=== PATIENT | female | born 1990 | race Caucasian/White ===

== ENCOUNTER 2017-05-01 08:21 | Emergency (ER) | payer OTHER ==
[2017-05-01 08:35] VITALS: BP 120/62
[2017-05-01] MEDS ORDERED: ALBUTEROL SULFATE/IPRATROPIUM 3 ML NEBU IH ONE (08:48)
--- NOTE | 2017-05-01 09:01 | ERNOTE ---
Abdominal HPI - General Chief Complaint: Abdominal Pain Time Seen by Provider: 05/01/17 08:33 Source: patient Exam Limitations: no limitations - Immun/Allergies/Home Medications Immunizatons: IMMUNIZATION HX Immunizations Up to Date Yes History of Influenza Vaccine No Hx Pneumococcal Vaccination No Allergies/Adverse Reactions: Allergies No Known Allergies Allergy (Verified 05/01/17 08:35) Home Medications: HOME MEDICATIONS NK [No Home Medication] 05/01/17 [Last Taken Unknown] - History of Present Illness Narrative: Here for abdominal pain which began yesterday afternoon after eating a large amount of rash dressing. She was told that she has gallstones in [facility], [place] approximately 4 years ago. Patient did not have any intervention done. She has been getting bouts of right upper quadrant abdominal pain off and on but they're usually self-limiting this bout has not gone away. She was adamant that she does not want any pain medication when I ask her what she wants me to do for her she states "I don't know" Review of Systems - Review of Systems Constitutional: Present: no symptoms reported EYE: Present: no symptoms reported ENT: Present: no symptoms reported Respiratory: Present: no symptoms reported Cardiology: Present: no symptoms reported Gastrointestinal/Abdominal: Present: nausea, abdominal pain. Absent: vomiting Genitourinary: Present: no symptoms reported Musculoskeletal: Present: no symptoms reported Skin: Present: no symptoms reported - Patient's Past Medical History Patient History - Medical: No pertinent hx Patient History - Cardiac/Respiratory: No pertinent hx Patient History - Cancer: No Hx of Cancer Patient History - Surgical Procedures: , Tubal Ligation, Other Patient History - Other: None LMP (Calendar): 08/20/14 - Social History Living Situations: home Abuse History: No History of abuse Psych History: Hx of Anxiety, Hx of Depression, Hx of Bipolar Disorder Smoking Status: Never smoker Have you smoked in the past 12 months: No Alcohol Use: occasionally Drug Use: none - Immunizations Immunizations Up to Date: Yes Hx Pneumococcal Vaccination: No History of Influenza Vaccine: No Physical Exam - Physical Exam General Appearance: Present: wd/wn, alert, no apparent distress Head Exam: Present: normal inspection, no evidence of injury Eye Exam: Normal inspection: bilateral, PERRL: bilateral, EOMI: bilateral Ears, Nose, Throat: Present: normal ENT inspection Neck: Present: normal inspection, nontender Respiratory: Present: no respiratory distress, normal breath sounds, no accessory muscle use, chest nontender, lungs clear Cardiovascular/Chest: Present: regular rate, rhythm, no murmur, normal peripheral pulses Gastrointestinal/Abdominal: Present: normal bowel sounds, nondistended, soft - she does morbidly obese she does have right upper quadrant tenderness upon direct palpation she has no masses she does not have any rebound tenderness. ED Progress - Vital Signs Patient's Vital Signs:: I have reviewed the patient's vital signs. - additionally I have requested test results from [facility], [place] in regards to patient's gallbladder imaging studies Vital Signs: Vital Signs 05/01/17 08:31 Temperature 36.2 C L Pulse Rate 81 Respiratory 16 Rate Blood Pressure 120/62 O2 Sat by Pulse 97 Oximetry - Progress/Reassessment Chief Complaint: Abdominal Pain Plan - Plan Plan: This patient has documented cholelithiasis she will be sent to Surgery clinic for follow up. Departure - Departure Clinical Impression: Cholelithiasis Qualifiers: Cholelithiasis location: gallbladder Cholecystitis presence: without cholecystitis Biliary obstruction: without biliary obstruction Qualified Code(s) : K80.20 - Calculus of gallbladder without cholecystitis without obstruction Disposition: Home self-care Condition: Good Instructions: Cholelithiasis, [id number] Additional Instructions: Please follow up with surgery clinic for your gallbladder issues
== END 2017-05-01 09:50 | disposition home or self-care (01) ==
LOC: ER 08:21
DX: K80.20 Calculus of gallbladder without cholecystitis without obstruction (principal)

== ENCOUNTER 2017-05-09 12:44 | Day surgery (SDC) | payer OTHER ==
[~2017-05-09 12:44] MED LIST: RINGER'S SOLUTION,LACTATED 1,000 ML IV PRN
[2017-05-09] MEDS ORDERED: BUPIVACAINE HCL/EPINEPHRINE 50 ML VIAL IJ ONE (15:30)
[2017-05-09] MEDS ORDERED: RINGER'S SOLUTION,LACTATED 1,000 ML IV ONE (16:16)
--- NOTE | 2017-05-09 16:35 | OR ---
Operative Report - Dictated Report Narrative: Date: 05/09/2017 Preop dx: Symptomatic cholelithiasis, chronic cholecystitis Postop dx: same Procedure: laparoscopic cholecystectomy Surgeon: Eric Mccabe MD Anesthesia: GETA EBL: minimal Specimen: gallbladder Drains: none Description: The patient was placed in the supine position and following the smooth induction of GETA the abdomen was prepped and draped in a sterile fashion. All port sites were anesthetized with marcaine prior to incision. A 5mm infraumbilical incision was made and blunt dissection taken to the abdominal wall. A perforating towel clip was placed through the umbilical raphe for countertraction. A 5mm bariatic stem blunt port was inserted into the abdominal cavity under direction vision with a scope within the lumen of the trocar. The abdomen was insufflated to a pressure of 15mmHg with carbon dioxide. Under direct vision a superior midline 10mm port was inserted and 2 right flank 5mm ports. The fundus was elevated toward the diaphragm and adhesions were bluntly dissected off the undersurface of the gallbladder. The infundibulum was grasped for countertraction. The cystic duct and cystic artery with doubly clipped and divided after obtaining a critical view of safety. The gallbladder was then removed from the fossa with blunt, scissor, and electrocautery dissection and was placed in an endocatch bag. The bag was removed from the superior midline port. The port was replaced and pneumoperitoneum reestablished. Inspection revealed good hemostasis and no apparent bile leak. The remainder of the marcaine was squirted into the peritoneal cavity. The superior midline port site fascia was closed with a dyana-josé luis and heavy silk. The pneumoperitoneum was evacuated and the ports removed. Incisions were closed with subcuticular stitches of 4-0 Vicryl and sealed with dermabond. The patient was discharged from the operating room in stable condition without apparent complications.
[2017-05-09] MEDS ORDERED: HYDROcodone/ACETAMINOPHEN 1 EACH TABLET PO PRN (17:48)
[2017-05-09 18:52] VITALS: BP 139/89
== END 2017-05-09 12:45 | disposition home or self-care (01) ==
LOC: AMB 12:44
PROVIDERS: ATTEND Specialist
PROC: 0FT44ZZ Resection of Gallbladder, Percutaneous Endoscopic Approach (ICD-10-PCS; principal; 2017-05-09 13:00)
DX: K80.10 Calculus of gallbladder with chronic cholecystitis without obstruction (principal); Z68.43 Body mass index [BMI] 50.0-59.9, adult